=== PATIENT | male | born 1995 | race Two or more races ===

== ENCOUNTER 2023-07-08 18:05 | Emergency (ER) | payer MEDICAID ==
[~2023-07-08] VITALS: Ht 180.3 cm; Wt 97.5 kg
[2023-07-08] MEDS ORDERED: HYDROCODONE/APAP 5/325MG TABLET ONE (21:21)
[2023-07-08] MEDS ORDERED: HYDROCODONE/APAP 5/325MG TABLET PO ONE (21:30)
[2023-07-08 23:37] VITALS: BP 131/91; TEMP 98.1; O2SAT 99
== END 2023-07-08 23:37 ==
LOC: ER 18:20
DX: S01.112A Laceration without foreign body of left eyelid and periocular area, initial encounter (principal); J45.909 Unspecified asthma, uncomplicated; Y04.0XXA Assault by unarmed brawl or fight, initial encounter; Y93.89 Activity, other specified; Y92.89 Other specified places as the place of occurrence of the external cause; Y99.0 Civilian activity done for income or pay
CPT/HCPCS: 70450-TC; 70486-TC

== ENCOUNTER 2024-11-21 11:02 | Emergency (ER) | payer MEDICAID, OTHER ==
[~2024-11-21] VITALS: Ht 180.3 cm; Wt 99.8 kg
[2024-11-21 11:24] VITALS: BP 130/84; TEMP 98.4; O2SAT 98
== END 2024-11-21 14:10 | disposition home or self-care (01) ==
LOC: ER 11:11
DX: S62.306A Unspecified fracture of fifth metacarpal bone, right hand, initial encounter for closed fracture (principal); J45.909 Unspecified asthma, uncomplicated; X50.9XXA Other and unspecified overexertion or strenuous movements or postures, initial encounter; Y93.89 Activity, other specified; Y92.89 Other specified places as the place of occurrence of the external cause; Y99.8 Other external cause status
CPT/HCPCS: 73130-TC